=== PATIENT | female | born 1950 | race African-American/Black ===

== ENCOUNTER 2021-06-18 08:43 | Outpatient (CLI) | payer BC | END 2021-06-18 08:44 | disposition home or self-care (01) | LOC: BICRAD 08:43 | PROVIDERS: ATTEND Internal Medicine Critical Care Medicine | DX: R06.00 Dyspnea, unspecified (principal) | CPT/HCPCS: 71046 ==

== ENCOUNTER 2021-07-08 10:17 | Outpatient (CLI) | payer MEDICARE, BC ==
[2021-07-08 12:18] LABS: SARS-CoV-2 NAA Rapid Test Not Detected (NotDetected)
== END 2021-07-08 10:18 | disposition home or self-care (01) ==
LOC: LABBT 10:17
PROVIDERS: ATTEND Family Medicine
DX: Z01.812 Encounter for preprocedural laboratory examination (principal); Z20.822 Contact with and (suspected) exposure to COVID-19
CPT/HCPCS: U0002

== ENCOUNTER 2021-07-09 10:03 | Outpatient (CLI) | payer MEDICARE, BC | END 2021-07-09 10:04 | disposition home or self-care (01) | PROVIDERS: ATTEND Internal Medicine Critical Care Medicine | DX: T17.908A Unspecified foreign body in respiratory tract, part unspecified causing other injury, initial encounter (principal); R13.10 Dysphagia, unspecified | CPT/HCPCS: 74230 ==

== ENCOUNTER 2022-01-14 12:38 | Inpatient (IN) | payer MEDICARE, BC ==
[2022-01-14] MEDS ORDERED: Acetaminophen 325 MG TAB ONE ×2 (13:09→13:50)
[2022-01-14] MEDS ORDERED: cefTRIAXone\\ROCEPHIN 2 GM VIAL ONE ×2 (13:09→13:50)
[2022-01-14] MEDS ORDERED: Azithromycin 500 MG VIAL ONE ×2 (13:09→13:50)
[2022-01-14 13:30] LABS: #Lymphocytes 0.9 thou/uL (1.20-3.40); #Monocytes 0.6 thou/uL (0.11-0.59); #Neutrophils 6.1 thou/uL (1.40-6.50); %Eosinophils 0.5 % (0.0-10.0); %Lymphocytes 11.8 % (21.0-51.0); %Monocytes 7.3 % (0.0-10.0); %Neutrophils 80.4 % (42.0-75.0); Hemoglobin 10.3 g/dL (12.0-16.0); Mean Corpuscular Hemoglobin 27.6 pg (27.0-31.0); Mean Corpuscular Volume 89.2 fL (78.0-98.0); Mean Platelet Volume 9.7 fL (7.4-10.4); Platelet Count 143 thou/uL (130-400); RBC Distribution Width 17.5 % (11.5-14.5); Red Blood Cell (RBC) Count 3.72 mill/uL (4.20-5.40); White Blood Cell (WBC) Count 7.6 thou/uL (4.8-10.8)
[2022-01-14 13:55] LABS: ALT (SGPT) Less than 7 U/L (8-55); AST (SGOT) 10 U/L (5-34); Albumin 3.5 g/dL (3.4-4.8); Alkaline Phosphatase 64 U/L (40-110); Anion Gap 16 mmol/L (10-20); BUN (Urea Nitrogen) 43 mg/dL (9.8-20.1); Bilirubin, Total 0.4 mg/dL (0.2-1.2); Calc. Creatinine Clearance 0 mL/min (70-130); Calcium 9.2 mg/dL (7.8-10.44); Carbon Dioxide 21 mmol/L (23-31); Chloride 102 mmol/L (98-107); Globulin 4.3 g/dL (2.4-3.5); Glucose 148 mg/dL (80-115); Potassium 4.6 mmol/L (3.5-5.1); Protein, Total 7.8 g/dL (5.8-8.1); Sodium 134 mmol/L (136-145)
[2022-01-14] MEDS ORDERED: HumaLOG 300 UNITS/3 ML VIAL SC PRN ×2 (15:04)
[2022-01-14] MEDS ORDERED: Dextrose 50% Abboject 50 ML SYRINGE SLOW IVP PRN (15:04)
[2022-01-14] MEDS ORDERED: Dextrose 5% in Water 1,000 ML IV PRN (15:04)
[2022-01-14] MEDS ORDERED: Ondansetron PF 4 MG/2 ML Vial IVP PRN (15:05)
[2022-01-14] MEDS ORDERED: Senokot S 8.6-50 MG TAB PO PRN (15:05)
[2022-01-14] MEDS ORDERED: Ondansetron ODT 4 MG TAB PO PRN (15:05)
[2022-01-14] MEDS ORDERED: Oseltamivir 6 MG/ML ORAL SUSP PO SCH (15:15)
[2022-01-14] MEDS ORDERED: Albuterol Sulfate 2.5 mg/3 ml Neb NEB PRN (15:16)
[2022-01-14] MEDS ORDERED: Benzonatate 100 MG CAP PO PRN (16:15)
[2022-01-14] MEDS: Sodium Chloride 0.9% 1,000 ML IV SCH (18:58)
[2022-01-14] MEDS ORDERED: Alendronate Sodium 70 mg Tablet PO SCH (19:00)
[2022-01-14] MEDS ORDERED: Enoxaparin Sodium 30 MG/0.3 ML SYRINGE SC SCH (21:00)
[2022-01-14] MEDS: Atorvastatin Calcium 10 MG TAB PO SCH (21:36)
[2022-01-14] MEDS: Calcium Carbonate 600 MG + Vit D TAB PO SCH (21:37)
[2022-01-14] MEDS: Mycophenolate 250 MG CAP PO SCH (21:37)
[2022-01-14] MEDS: Carvedilol 25 MG TAB PO SCH (21:37)
[2022-01-14] MEDS: Magnesium Oxide 400 MG TAB PO SCH (21:38)
[2022-01-15 04:25] LABS: Hemoglobin A1c 6.8 % (4.0-6.0)
[2022-01-15 04:43] LABS: Anion Gap 12 mmol/L (10-20); BUN (Urea Nitrogen) 45 mg/dL (9.8-20.1); Calc. Creatinine Clearance 26 mL/min (70-130); Calcium 8.2 mg/dL (7.8-10.44); Carbon Dioxide 22 mmol/L (23-31); Chloride 105 mmol/L (98-107); Glucose 105 mg/dL (80-115); Potassium 4.4 mmol/L (3.5-5.1); Sodium 135 mmol/L (136-145)
[2022-01-15 05:03] LABS: Band 27 % (5-11); Hemoglobin 9.5 g/dL (12.0-16.0); Hypochromia SLIGHT = 6-15 cells (100X) (0-5/hpf); Lymphocytes 12 % (21-51); MDiff Complete? YES; Mean Corpuscular HGB CONC 30.8 g/dL (32.0-36.0); Mean Corpuscular Hemoglobin 27.5 pg (27.0-31.0); Mean Corpuscular Volume 89.4 fL (78.0-98.0); Mean Platelet Volume 10.4 fL (7.4-10.4); Monocytes 1 % (0-10); Neutrophil 60 % (42-75); Platelet Count 135 thou/uL (130-400); Platelet Morphology Comment Appears Adequate; RBC Distribution Width 17.1 % (11.5-14.5); Red Blood Cell (RBC) Count 3.46 mill/uL (4.20-5.40); White Blood Cell (WBC) Count 5.4 thou/uL (4.8-10.8)
[2022-01-15] MEDS: Sodium Chloride 0.9% 1,000 ML IV SCH ×3 (06:08→22:21)
[2022-01-15] MEDS: Carvedilol 25 MG TAB PO SCH ×2 (08:36→22:07)
[2022-01-15] MEDS: Enoxaparin Sodium 30 MG/0.3 ML SYRINGE SC SCH (08:36)
[2022-01-15] MEDS: predniSONE 5 MG TAB PO SCH (08:36)
[2022-01-15] MEDS: Mycophenolate 250 MG CAP PO SCH ×2 (08:36→22:07)
[2022-01-15] MEDS: Venlafaxine HCl XR 75 MG CAP PO SCH (08:37)
[2022-01-15] MEDS: Allopurinol 300 MG TAB PO SCH (08:37)
[2022-01-15] MEDS: Cholecalciferol 1,000 UNITS (25 MCG) TAB PO SCH (08:37)
[2022-01-15] MEDS: Calcium Carbonate 600 MG + Vit D TAB PO SCH ×2 (08:37→22:07)
[2022-01-15] MEDS ORDERED: cefTRIAXone\\ROCEPHIN 1 GM in Sodium Chloride 0.9% 100 ML IVPB SCH (14:00)
[2022-01-15 14:09] VITALS: BMI 26.3
[2022-01-15] MEDS ORDERED: Azithromycin 500 MG in Sodium Chloride 0.9% 250 ML 250 ML IVPB SCH (15:00)
[2022-01-15] MEDS: Oseltamivir 6 MG/ML ORAL SUSP PO SCH (16:23)
[2022-01-15] MEDS: Magnesium Oxide 400 MG TAB PO SCH (22:06)
[2022-01-15] MEDS: Atorvastatin Calcium 10 MG TAB PO SCH (22:07)
[2022-01-15] MEDS: Acetaminophen 325 MG TAB PO PRN (22:11)
[2022-01-16 04:28] LABS: #Lymphocytes 1.8 thou/uL (1.20-3.40); #Monocytes 0.2 thou/uL (0.11-0.59); #Neutrophils 2.4 thou/uL (1.40-6.50); %Basophils 0.4 % (0.0-1.0); %Eosinophils 0.2 % (0.0-10.0); %Lymphocytes 40.9 % (21.0-51.0); %Monocytes 4.2 % (0.0-10.0); %Neutrophils 54.4 % (42.0-75.0); Hemoglobin 9.2 g/dL (12.0-16.0); Mean Corpuscular HGB CONC 30.8 g/dL (32.0-36.0); Mean Corpuscular Hemoglobin 27.4 pg (27.0-31.0); Mean Corpuscular Volume 88.9 fL (78.0-98.0); Mean Platelet Volume 9.8 fL (7.4-10.4); Platelet Count 130 thou/uL (130-400); RBC Distribution Width 17.1 % (11.5-14.5); Red Blood Cell (RBC) Count 3.36 mill/uL (4.20-5.40); White Blood Cell (WBC) Count 4.5 thou/uL (4.8-10.8)
[2022-01-16 04:47] LABS: Anion Gap 12 mmol/L (10-20); BUN (Urea Nitrogen) 38 mg/dL (9.8-20.1); Calc. Creatinine Clearance 30 mL/min (70-130); Calcium 7.8 mg/dL (7.8-10.44); Carbon Dioxide 21 mmol/L (23-31); Chloride 109 mmol/L (98-107); Glucose 100 mg/dL (80-115); Potassium 3.8 mmol/L (3.5-5.1); Sodium 138 mmol/L (136-145)
[2022-01-16] MEDS: Mycophenolate 250 MG CAP PO SCH ×2 (09:00→21:10)
[2022-01-16] MEDS: Tacrolimus 0.5 MG CAP PO SCH ×2 (09:00→21:10)
[2022-01-16] MEDS: Calcium Carbonate 600 MG + Vit D TAB PO SCH ×2 (09:00→21:10)
[2022-01-16] MEDS: Cholecalciferol 1,000 UNITS (25 MCG) TAB PO SCH (09:00)
[2022-01-16] MEDS: Venlafaxine HCl XR 75 MG CAP PO SCH (09:01)
[2022-01-16] MEDS: Allopurinol 300 MG TAB PO SCH (09:01)
[2022-01-16] MEDS: Carvedilol 25 MG TAB PO SCH ×2 (09:01→21:10)
[2022-01-16] MEDS: Enoxaparin Sodium 30 MG/0.3 ML SYRINGE SC SCH (09:01)
[2022-01-16] MEDS: predniSONE 5 MG TAB PO SCH (09:01)
[2022-01-16] MEDS: Oseltamivir 6 MG/ML ORAL SUSP PO SCH (15:28)
[2022-01-16] MEDS: Sodium Chloride 0.9% 1,000 ML IV SCH ×2 (15:29)
[2022-01-16 17:39] LABS: Bilirubin Negative (Negative); Blood, Urine Negative (Negative); Clarity Clear (Clear); Glucose, Urine (Dipstick) Normal (Negative); Ketone, Urine Negative (Negative); Leukocyte Negative Leu/uL (Negative); Nitrite Negative (Negative); Protein, Urine (Dipstick) 20 mg/dL (Neg-Trace); RBC/HPF 0-3 HPF (0-3); Specific Gravity, Urine 1.014 (1.002-1.036); Urobilinogen Normal mg/dL (Less than 2); WBC/HPF 0-3 HPF (0-3); pH, Urine 5.5 (5.0-9.0)
[2022-01-16 17:40] LABS: Bacteria/HPF 1+ HPF (None Seen); Urine Culture Reflex No No
[2022-01-16 17:49] LABS: Legionella Urinary Ag Negative (Negative); Strep pneumo Urine Ag NEGATIVE (NEGATIVE)
[2022-01-16] MEDS: Atorvastatin Calcium 10 MG TAB PO SCH (21:10)
[2022-01-16] MEDS: Magnesium Oxide 400 MG TAB PO SCH (21:10)
[2022-01-16] MEDS ORDERED: Loperamide HCl 2 MG CAP PO SCH (22:00)
[2022-01-17] MEDS: Sodium Chloride 0.9% 1,000 ML IV SCH (05:17)
[2022-01-17] MEDS: Allopurinol 300 MG TAB PO SCH (09:15)
[2022-01-17] MEDS: Cholecalciferol 1,000 UNITS (25 MCG) TAB PO SCH (09:15)
[2022-01-17] MEDS: Carvedilol 25 MG TAB PO SCH (09:15)
[2022-01-17] MEDS: Mycophenolate 250 MG CAP PO SCH (09:15)
[2022-01-17] MEDS: Venlafaxine HCl XR 75 MG CAP PO SCH (09:15)
[2022-01-17] MEDS: predniSONE 5 MG TAB PO SCH (09:15)
[2022-01-17] MEDS: Enoxaparin Sodium 30 MG/0.3 ML SYRINGE SC SCH (09:16)
[2022-01-17] MEDS: Calcium Carbonate 600 MG + Vit D TAB PO SCH (09:16)
[2022-01-17] MEDS: Acetaminophen 325 MG TAB PO PRN (09:22)
[2022-01-17 11:56] VITALS: TEMP 98.8
[2022-01-17 12:15] VITALS: BP 137/73
[2022-01-17] MEDS: Oseltamivir 6 MG/ML ORAL SUSP PO SCH (12:46)
[2022-01-17] MEDS ORDERED: AMOXicillin 250 MG CAP PO SCH (21:00)
[2022-01-17] MEDS ORDERED: Amoxicillin/Potassium Clav 500 MG TAB PO SCH (21:00)
== END 2022-01-17 13:45 | disposition home or self-care (01) | DRG 193 ==
LOC: ERS 12:38 → EEVIPCON 14:55 → ERHOLD 14:55 → 2NO 17:23
PROVIDERS: ADMIT Student in an Organized Health Care Education/Training Program; ATTEND Student in an Organized Health Care Education/Training Program
DX: J11.00 Influenza due to unidentified influenza virus with unspecified type of pneumonia (principal); J96.01 Acute respiratory failure with hypoxia; E87.1 Hypo-osmolality and hyponatremia; N17.9 Acute kidney failure, unspecified; Z94.1 Heart transplant status; D84.821 Immunodeficiency due to drugs; Z20.822 Contact with and (suspected) exposure to COVID-19; I10 Essential (primary) hypertension; E78.5 Hyperlipidemia, unspecified; M81.0 Age-related osteoporosis without current pathological fracture; M10.9 Gout, unspecified; E03.9 Hypothyroidism, unspecified; F32.A Depression, unspecified; Z60.2 Problems related to living alone; D64.9 Anemia, unspecified; E11.65 Type 2 diabetes mellitus with hyperglycemia; J11.2 Influenza due to unidentified influenza virus with gastrointestinal manifestations; Z98.890 Other specified postprocedural states; Z79.899 Other long term (current) drug therapy; Z88.1 Allergy status to other antibiotic agents; Z88.8 Allergy status to other drugs, medicaments and biological substances
CPT/HCPCS: 36415; 36416; 71045; 80048; 80053; 81001; 83036; 83605; 85025; 87040; 87324; 87449; 87899; 96365; 96367; J0456; J0696; J1650; J7050; J7507; J7512; J7517

== ENCOUNTER 2022-02-17 10:02 | Outpatient (CLI) | payer MEDICARE, BC | END 2022-02-17 10:03 | disposition home or self-care (01) | LOC: RAD 10:02 | PROVIDERS: ATTEND Internal Medicine Critical Care Medicine | DX: R06.00 Dyspnea, unspecified (principal); J18.9 Pneumonia, unspecified organism; J90 Pleural effusion, not elsewhere classified | CPT/HCPCS: 71046 ==

== ENCOUNTER 2022-07-10 11:25 | Emergency (ER) | payer MEDICARE, BC ==
[2022-07-10 12:10] LABS: #Basophils 0.1 thou/uL (0.0-0.2); #Monocytes 0.5 thou/uL (0.11-0.59); %Basophils 0.6 % (0.0-1.0); %Eosinophils 0.4 % (0.0-10.0); %Lymphocytes 22.9 % (21.0-51.0); %Monocytes 6.1 % (0.0-10.0); Hemoglobin 11.4 g/dL (12.0-16.0); Mean Corpuscular HGB CONC 30.9 g/dL (32.0-36.0); Mean Corpuscular Hemoglobin 26.6 pg (27.0-31.0); Mean Corpuscular Volume 85.9 fL (78.0-98.0); Mean Platelet Volume 11.6 fL (7.4-10.4); Platelet Count 129 thou/uL (130-400); RBC Distribution Width 17.9 % (11.5-14.5); White Blood Cell (WBC) Count 8.5 thou/uL (4.8-10.8)
[2022-07-10 12:30] LABS: ALT (SGPT) 8 U/L (8-55); AST (SGOT) 19 U/L (5-34); Albumin 3.6 g/dL (3.4-4.8); Alkaline Phosphatase 69 U/L (40-110); Anion Gap 18 mmol/L (10-20); BUN (Urea Nitrogen) 51 mg/dL (9.8-20.1); Bilirubin, Total 0.5 mg/dL (0.2-1.2); Calc. Creatinine Clearance 0 mL/min (70-130); Calcium 9.3 mg/dL (7.8-10.44); Carbon Dioxide 20 mmol/L (23-31); Chloride 101 mmol/L (98-107); Estimated GFR 15; Globulin 4.5 g/dL (2.4-3.5); Glucose 143 mg/dL (83-110); Potassium 4.5 mmol/L (3.5-5.1); Protein, Total 8.1 g/dL (5.8-8.1); Sodium 134 mmol/L (136-145)
[2022-07-10] MEDS ORDERED: Bisacodyl 10 MG SUPP ONE (12:51)
[2022-07-10 13:33] LABS: SARS-CoV-2 NAA Rapid Test DETECTED (NotDetected)
[2022-07-10] MEDS ORDERED: Fentanyl 100 MCG/2 ML VIAL ONE ×2 (13:39→17:41)
[2022-07-10 15:25] LABS: Bacteria/HPF None Seen HPF (None Seen); Bilirubin Negative (Negative); Blood, Urine Negative (Negative); Clarity Clear (Clear); Glucose, Urine (Dipstick) Normal (Negative); Ketone, Urine Negative (Negative); Leukocyte Negative Leu/uL (Negative); Nitrite Negative (Negative); Protein, Urine (Dipstick) 70 mg/dL (Neg-Trace); RBC/HPF 0-3 HPF (0-3); Specific Gravity, Urine 1.019 (1.002-1.036); Squamous Epithelial None Seen HPF (0-3); Urobilinogen Normal mg/dL (Less than 2); WBC/HPF 0-3 HPF (0-3); pH, Urine 5.5 (5.0-9.0)
== END 2022-07-10 19:32 | disposition short-term general hospital (02) ==
LOC: ERS 11:25
DX: U07.1 COVID-19 (principal); R41.82 Altered mental status, unspecified; N17.9 Acute kidney failure, unspecified; Z79.899 Other long term (current) drug therapy; Z79.52 Long term (current) use of systemic steroids; E78.5 Hyperlipidemia, unspecified; I10 Essential (primary) hypertension
CPT/HCPCS: 51701; 70450; 71045; 74176; 80053; 84484; 85025; 87086; 93005; 96361; 96374; 96376; 99285; U0002; 81003; 81015; J3010

== ENCOUNTER 2023-02-09 11:09 | Outpatient (CLI) | payer MEDICARE, BC | END 2023-02-09 11:10 | disposition home or self-care (01) | LOC: RAD 11:09 | PROVIDERS: ATTEND Internal Medicine Critical Care Medicine | DX: R06.00 Dyspnea, unspecified (principal) | CPT/HCPCS: 71046 ==

== ENCOUNTER 2023-09-04 19:03 | Inpatient (IN) | payer MEDICARE, BC ==
[2023-09-04 20:23] LABS: ALT (SGPT) 9 U/L (8-55); AST (SGOT) 10 U/L (5-34); Albumin 3.9 g/dL (3.4-4.8); Alkaline Phosphatase 82 U/L (40-110); Anion Gap 15 mmol/L (10-20); BUN (Urea Nitrogen) 70 mg/dL (9.8-20.1); Bilirubin, Total 0.3 mg/dL (0.2-1.2); Calc. Creatinine Clearance 0 mL/min (70-130); Calcium 9.6 mg/dL (7.8-10.44); Carbon Dioxide 22 mmol/L (23-31); Chloride 105 mmol/L (98-107); Estimated GFR 18; Globulin 4.3 g/dL (2.4-3.5); Glucose 138 mg/dL (83-110); Potassium 4.7 mmol/L (3.5-5.1); Protein, Total 8.2 g/dL (5.8-8.1); Sodium 137 mmol/L (136-145)
[2023-09-04 20:27] LABS: Troponin I Less than 0.010 ng/mL (< 0.028)
[2023-09-04 20:37] LABS: #Monocytes 0.3 thou/uL (0.11-0.59); %Basophils 0.3 % (0.0-1.0); %Eosinophils 0.3 % (0.0-10.0); %Lymphocytes 27.6 % (21.0-51.0); %Monocytes 4.6 % (0.0-10.0); %Neutrophils 63.6 % (42.0-75.0); Hematocrit 33.1 % (36.0-47.0); Mean Corpuscular HGB CONC 30.2 g/dL (32.0-36.0); Mean Corpuscular Volume 86.2 fl (78.0-98.0); Mean Platelet Volume 9.2 fL (7.4-10.4); Platelet Count 181 10x3/uL (130-400); RBC Distribution Width 17.3 % (11.5-14.5); Red Blood Cell (RBC) Count 3.84 mill/uL (4.20-5.40); White Blood Cell (WBC) Count 6.4 10x3/uL (4.8-10.8)
[2023-09-04] MEDS ORDERED: Tacrolimus 0.5 MG CAP PO SCH (23:26)
[2023-09-04] MEDS ORDERED: Calcium Carbonate 500 MG ChewTAB PO PRN (23:29)
[2023-09-04] MEDS ORDERED: Mycophenolate 250 MG CAP PO SCH (23:45)
[2023-09-05] MEDS ORDERED: Acetaminophen 500 MG TAB ONE (00:19)
[2023-09-05] MEDS ORDERED: Sodium Chloride 0.9% 1,000 ML IV SCH (00:30)
[2023-09-05 01:10] LABS: Troponin I Less than 0.010 ng/mL (< 0.028)
[2023-09-05 02:58] LABS: #Eosinphils 0.1 thou/uL (0.0-0.7); #Monocytes 0.5 thou/uL (0.11-0.59); #Neutrophils 5.1 thou/uL (1.40-6.50); %Basophils 0.3 % (0.0-1.0); %Eosinophils 0.6 % (0.0-10.0); %Lymphocytes 25.1 % (21.0-51.0); %Monocytes 6.2 % (0.0-10.0); %Neutrophils 66.1 % (42.0-75.0); Hematocrit 32.6 % (36.0-47.0); Hemoglobin 10.1 g/dL (12.0-16.0); Mean Corpuscular Hemoglobin 26.6 pg (27.0-31.0); Mean Corpuscular Volume 85.8 fl (78.0-98.0); Mean Platelet Volume 9.3 fL (7.4-10.4); Platelet Count 170 10x3/uL (130-400); RBC Distribution Width 17.2 % (11.5-14.5); White Blood Cell (WBC) Count 7.7 10x3/uL (4.8-10.8)
[2023-09-05 03:29] LABS: Troponin I Less than 0.010 ng/mL (< 0.028)
[2023-09-05 03:37] LABS: Calcium 9.3 mg/dL (7.8-10.44); Chloride 107 mmol/L (98-107); Potassium 4.5 mmol/L (3.5-5.1); Sodium 136 mmol/L (136-145)
[2023-09-05 03:38] LABS: Glucose 93 mg/dL (83-110)
[2023-09-05 03:39] LABS: Anion Gap 13 mmol/L (10-20); Carbon Dioxide 21 mmol/L (23-31)
[2023-09-05 03:41] LABS: Calc. Creatinine Clearance 24 mL/min (70-130); Estimated GFR 23
[2023-09-05 03:42] LABS: BUN (Urea Nitrogen) 61 mg/dL (9.8-20.1)
[2023-09-05] MEDS: Levothyroxine Sodium 88 MCG TAB PO SCH (07:21)
[2023-09-05] MEDS ORDERED: FLU VACC QS2023(65UP)/MF59C/PF 60 MCG/0.5 ML SYRINGE IM ONE (08:45)
[2023-09-05] MEDS: Venlafaxine HCl XR 75 MG CAP PO SCH (10:10)
[2023-09-05] MEDS: Carvedilol 25 MG TAB PO SCH ×2 (10:10→21:04)
[2023-09-05] MEDS: dilTIAZem CD 180 MG CAP PO SCH (10:10)
[2023-09-05] MEDS: Famotidine 20 MG TAB PO SCH (10:10)
[2023-09-05] MEDS: Cholecalciferol 1,000 UNITS (25 MCG) TAB PO SCH (10:11)
[2023-09-05] MEDS: predniSONE 5 MG TAB PO SCH (10:11)
[2023-09-05] MEDS: Allopurinol 300 MG TAB PO SCH (10:11)
[2023-09-05] MEDS: Mycophenolate 250 MG CAP PO SCH ×2 (10:11→21:08)
[2023-09-05] MEDS: Sodium Chloride 0.9% 1,000 ML IV SCH (18:36)
[2023-09-05] MEDS: Atorvastatin Calcium 10 MG TAB PO SCH (21:04)
[2023-09-05] MEDS: Magnesium Oxide 400 MG TAB PO SCH (21:07)
[2023-09-06 04:26] LABS: #Eosinphils 0.1 thou/uL (0.0-0.7); #Monocytes 0.4 thou/uL (0.11-0.59); #Neutrophils 3.5 thou/uL (1.40-6.50); %Basophils 0.5 % (0.0-1.0); %Eosinophils 1.1 % (0.0-10.0); %Lymphocytes 28.8 % (21.0-51.0); %Monocytes 6.4 % (0.0-10.0); %Neutrophils 61.6 % (42.0-75.0); Hemoglobin 9.9 g/dL (12.0-16.0); Mean Corpuscular Hemoglobin 25.8 pg (27.0-31.0); Mean Corpuscular Volume 85.9 fl (78.0-98.0); Platelet Count 177 10x3/uL (130-400); RBC Distribution Width 17.2 % (11.5-14.5); Red Blood Cell (RBC) Count 3.84 mill/uL (4.20-5.40); White Blood Cell (WBC) Count 5.6 10x3/uL (4.8-10.8)
[2023-09-06 04:55] LABS: Anion Gap 10 mmol/L (10-20); BUN (Urea Nitrogen) 52 mg/dL (9.8-20.1); Calc. Creatinine Clearance 27 mL/min (70-130); Calcium 8.8 mg/dL (7.8-10.44); Carbon Dioxide 22 mmol/L (23-31); Chloride 109 mmol/L (98-107); Estimated GFR 28; Glucose 113 mg/dL (83-110); Potassium 4.3 mmol/L (3.5-5.1); Sodium 137 mmol/L (136-145)
[2023-09-06 09:32] VITALS: BMI 24.3
[2023-09-06] MEDS: Mycophenolate 250 MG CAP PO SCH ×2 (10:54→21:49)
[2023-09-06] MEDS: Venlafaxine HCl XR 75 MG CAP PO SCH (10:54)
[2023-09-06] MEDS: dilTIAZem CD 180 MG CAP PO SCH (10:54)
[2023-09-06] MEDS: Tacrolimus 0.5 MG CAP PO SCH ×2 (10:54→21:58)
[2023-09-06] MEDS: Carvedilol 25 MG TAB PO SCH ×2 (10:54→21:49)
[2023-09-06] MEDS: predniSONE 5 MG TAB PO SCH (10:55)
[2023-09-06] MEDS: Cholecalciferol 1,000 UNITS (25 MCG) TAB PO SCH (10:55)
[2023-09-06] MEDS: Famotidine 20 MG TAB PO SCH (10:55)
[2023-09-06] MEDS: Allopurinol 300 MG TAB PO SCH (10:55)
[2023-09-06] MEDS: Sodium Chloride 0.9% 1,000 ML IV SCH (11:37)
[2023-09-06 14:19] LABS: Creatinine, Urine 84.41 mg/dL (47-110)
[2023-09-06] MEDS ORDERED: Tacrolimus 0.5 MG CAP PO SCH (21:00)
[2023-09-06] MEDS: Magnesium Oxide 400 MG TAB PO SCH (21:48)
[2023-09-06] MEDS: Atorvastatin Calcium 10 MG TAB PO SCH (21:49)
[2023-09-07 05:03] LABS: Anion Gap 12 mmol/L (10-20); BUN (Urea Nitrogen) 39 mg/dL (9.8-20.1); Calc. Creatinine Clearance 30 mL/min (70-130); Calcium 8.7 mg/dL (7.8-10.44); Carbon Dioxide 17 mmol/L (23-31); Chloride 113 mmol/L (98-107); Estimated GFR 33; Glucose 135 mg/dL (83-110); Potassium 4.2 mmol/L (3.5-5.1); Sodium 138 mmol/L (136-145)
[2023-09-07] MEDS: Levothyroxine Sodium 88 MCG TAB PO SCH (05:43)
[2023-09-07] MEDS: Tacrolimus 0.5 MG CAP PO SCH (08:53)
[2023-09-07] MEDS: Carvedilol 25 MG TAB PO SCH ×2 (08:53→19:56)
[2023-09-07] MEDS: Ondansetron ODT 4 MG TAB PO PRN (08:53)
[2023-09-07] MEDS: dilTIAZem CD 180 MG CAP PO SCH (08:53)
[2023-09-07] MEDS: predniSONE 5 MG TAB PO SCH (08:53)
[2023-09-07] MEDS: Famotidine 20 MG TAB PO SCH (08:54)
[2023-09-07] MEDS: Allopurinol 300 MG TAB PO SCH (08:54)
[2023-09-07] MEDS: Venlafaxine HCl XR 75 MG CAP PO SCH (08:54)
[2023-09-07] MEDS: Cholecalciferol 1,000 UNITS (25 MCG) TAB PO SCH (08:54)
[2023-09-07] MEDS: Mycophenolate 250 MG CAP PO SCH ×2 (08:54→19:56)
[2023-09-07] MEDS: Sodium Chloride 0.9% 1,000 ML IV SCH (09:02)
[2023-09-07] MEDS: Atorvastatin Calcium 10 MG TAB PO SCH (19:56)
[2023-09-07] MEDS: Magnesium Oxide 400 MG TAB PO SCH (19:56)
[2023-09-08 05:20] LABS: Anion Gap 15 mmol/L (10-20); BUN (Urea Nitrogen) 42 mg/dL (9.8-20.1); Calc. Creatinine Clearance 21 mL/min (70-130); Calcium 8.2 mg/dL (7.8-10.44); Carbon Dioxide 18 mmol/L (23-31); Chloride 106 mmol/L (98-107); Estimated GFR 22; Glucose 135 mg/dL (83-110); Potassium 4.6 mmol/L (3.5-5.1); Sodium 134 mmol/L (136-145)
[2023-09-08] MEDS: Sodium Chloride 0.9% 1,000 ML IV SCH (05:34)
[2023-09-08] MEDS: Mycophenolate 250 MG CAP PO SCH ×2 (08:58→20:33)
[2023-09-08] MEDS: predniSONE 5 MG TAB PO SCH (08:59)
[2023-09-08] MEDS: Cholecalciferol 1,000 UNITS (25 MCG) TAB PO SCH (08:59)
[2023-09-08] MEDS: Venlafaxine HCl XR 75 MG CAP PO SCH (08:59)
[2023-09-08] MEDS: Carvedilol 25 MG TAB PO SCH ×2 (08:59→21:07)
[2023-09-08] MEDS: Allopurinol 300 MG TAB PO SCH (08:59)
[2023-09-08] MEDS: Tacrolimus 0.5 MG CAP PO SCH (08:59)
[2023-09-08] MEDS: Famotidine 20 MG TAB PO SCH (08:59)
[2023-09-08] MEDS: dilTIAZem CD 180 MG CAP PO SCH (08:59)
[2023-09-08 17:38] LABS: Tacrolimus 3.1 ng/mL (2.0-20.0)
[2023-09-08] MEDS: Ondansetron ODT 4 MG TAB PO PRN (18:07)
[2023-09-08] MEDS: Atorvastatin Calcium 10 MG TAB PO SCH (20:32)
[2023-09-08] MEDS: Magnesium Oxide 400 MG TAB PO SCH (20:33)
[2023-09-09] MEDS: Sodium Chloride 0.9% 1,000 ML IV SCH ×2 (01:40→20:54)
[2023-09-09 02:56] LABS: Bacteria/HPF None Seen HPF (None Seen); Bilirubin Negative (Negative); Blood, Urine Negative (Negative); CAUTI Indications for Culture Dysuria,urgency,freq; Clarity Clear (Clear); Glucose, Urine (Dipstick) 30 mg/dL (Negative); Ketone, Urine Negative (Negative); Leukocyte Negative Leu/uL (Negative); Nitrite Negative (Negative); Protein, Urine (Dipstick) 20 mg/dL (Neg-Trace); RBC/HPF 0-3 HPF (0-3); Squamous Epithelial None Seen HPF (0-3); Urobilinogen Normal mg/dL (Less than 2); WBC/HPF 0-3 HPF (0-3)
[2023-09-09 02:57] LABS: Urine Culture Reflex No No
[2023-09-09 04:33] LABS: Hemoglobin 8.5 g/dL (12.0-16.0); Manual Diff?? YES; Mean Corpuscular HGB CONC 30.4 g/dL (32.0-36.0); Mean Corpuscular Hemoglobin 25.8 pg (27.0-31.0); Mean Corpuscular Volume 85.1 fl (78.0-98.0); Mean Platelet Volume 10.5 fL (7.4-10.4); Platelet Count 150 10x3/uL (130-400); RBC Distribution Width 17.2 % (11.5-14.5); Red Blood Cell (RBC) Count 3.29 mill/uL (4.20-5.40)
[2023-09-09 04:36] LABS: Delete Auto Diff?? YES
[2023-09-09 05:14] LABS: Band 49 % (5-11); CellaVision Operator ID LAB.CLH1; Hypochromia SLIGHT = 6-15 cells HPF (0-5); Large Platelets 6.9 % (0-5); Lymphocytes 4 % (21-51); Monocytes 1 % (0-10); Neutrophil 46 % (42-75); Platelet Adequacy Comment Platelets Normal; Polychromasia SLIGHT = 2-3 cells HPF (0-2); Total Cell Count 102
[2023-09-09] MEDS: Levothyroxine Sodium 88 MCG TAB PO SCH (05:30)
[2023-09-09] MEDS: Cholecalciferol 1,000 UNITS (25 MCG) TAB PO SCH (09:18)
[2023-09-09] MEDS: Carvedilol 25 MG TAB PO SCH ×2 (09:18→20:53)
[2023-09-09] MEDS: predniSONE 5 MG TAB PO SCH (09:18)
[2023-09-09] MEDS: dilTIAZem CD 180 MG CAP PO SCH (09:18)
[2023-09-09] MEDS: Famotidine 20 MG TAB PO SCH (09:18)
[2023-09-09] MEDS: Tacrolimus 0.5 MG CAP PO SCH (09:18)
[2023-09-09] MEDS: Venlafaxine HCl XR 75 MG CAP PO SCH (09:19)
[2023-09-09] MEDS: Mycophenolate 250 MG CAP PO SCH ×2 (09:19→20:53)
[2023-09-09] MEDS: Allopurinol 300 MG TAB PO SCH (09:19)
[2023-09-09 11:36] LABS: Anion Gap 12 mmol/L (10-20); BUN (Urea Nitrogen) 59 mg/dL (9.8-20.1); Calc. Creatinine Clearance 15 mL/min (70-130); Calcium 8.2 mg/dL (7.8-10.44); Carbon Dioxide 19 mmol/L (23-31); Chloride 106 mmol/L (98-107); Estimated GFR 15; Glucose 156 mg/dL (83-110); Potassium 4.5 mmol/L (3.5-5.1); Sodium 132 mmol/L (136-145)
[2023-09-09] MEDS ORDERED: Sodium Bicarbonate Tab 325 MG TAB PO SCH (19:00)
[2023-09-09] MEDS: Atorvastatin Calcium 10 MG TAB PO SCH (20:53)
[2023-09-09] MEDS: Magnesium Oxide 400 MG TAB PO SCH (20:53)
[2023-09-10] MEDS: Acetaminophen 325 MG TAB PO PRN ×2 (05:04→09:04)
[2023-09-10 05:32] LABS: Anion Gap 14 mmol/L (10-20); BUN (Urea Nitrogen) 58 mg/dL (9.8-20.1); Calc. Creatinine Clearance 18 mL/min (70-130); Calcium 8.3 mg/dL (7.8-10.44); Carbon Dioxide 17 mmol/L (23-31); Chloride 108 mmol/L (98-107); Estimated GFR 19; Glucose 107 mg/dL (83-110); Potassium 4.7 mmol/L (3.5-5.1); Sodium 134 mmol/L (136-145)
[2023-09-10] MEDS: Sodium Bicarbonate Tab 325 MG TAB PO SCH ×2 (09:05→22:21)
[2023-09-10] MEDS: Mycophenolate 250 MG CAP PO SCH ×2 (09:05→22:21)
[2023-09-10] MEDS: Famotidine 20 MG TAB PO SCH (09:06)
[2023-09-10] MEDS: Venlafaxine HCl XR 75 MG CAP PO SCH (09:06)
[2023-09-10] MEDS: Allopurinol 300 MG TAB PO SCH (09:06)
[2023-09-10] MEDS: Cholecalciferol 1,000 UNITS (25 MCG) TAB PO SCH (09:06)
[2023-09-10] MEDS: Carvedilol 25 MG TAB PO SCH ×2 (09:06→22:21)
[2023-09-10] MEDS: Tacrolimus 0.5 MG CAP PO SCH ×2 (09:07→22:24)
[2023-09-10] MEDS: dilTIAZem CD 180 MG CAP PO SCH (09:07)
[2023-09-10] MEDS: predniSONE 5 MG TAB PO SCH (09:07)
[2023-09-10] MEDS: Sodium Chloride 0.9% 1,000 ML IV SCH (09:08)
[2023-09-10] MEDS ORDERED: Tamsulosin HCl 0.4 MG CAP PO SCH (16:30)
[2023-09-10] MEDS: Atorvastatin Calcium 10 MG TAB PO SCH (22:21)
[2023-09-10] MEDS: Magnesium Oxide 400 MG TAB PO SCH (22:21)
[2023-09-11] MEDS: Levothyroxine Sodium 88 MCG TAB PO SCH (06:07)
[2023-09-11] MEDS: Cholecalciferol 1,000 UNITS (25 MCG) TAB PO SCH (09:12)
[2023-09-11] MEDS: Carvedilol 25 MG TAB PO SCH ×2 (09:12→20:16)
[2023-09-11] MEDS: dilTIAZem CD 180 MG CAP PO SCH (09:12)
[2023-09-11] MEDS: Allopurinol 300 MG TAB PO SCH (09:12)
[2023-09-11] MEDS: Mycophenolate 250 MG CAP PO SCH ×2 (09:13→20:16)
[2023-09-11] MEDS: predniSONE 5 MG TAB PO SCH (09:13)
[2023-09-11] MEDS: Famotidine 20 MG TAB PO SCH (09:13)
[2023-09-11] MEDS: Tamsulosin HCl 0.4 MG CAP PO SCH (09:14)
[2023-09-11] MEDS: Sodium Bicarbonate Tab 325 MG TAB PO SCH ×2 (09:14→20:16)
[2023-09-11] MEDS: Venlafaxine HCl XR 75 MG CAP PO SCH (09:14)
[2023-09-11] MEDS: Tacrolimus 0.5 MG CAP PO SCH (09:14)
[2023-09-11] MEDS: Acetaminophen 325 MG TAB PO PRN (20:16)
[2023-09-11] MEDS: Magnesium Oxide 400 MG TAB PO SCH (20:16)
[2023-09-11] MEDS: Atorvastatin Calcium 10 MG TAB PO SCH (20:16)
[2023-09-12] MEDS: Acetaminophen 325 MG TAB PO PRN ×3 (02:00→21:43)
[2023-09-12 02:52] LABS: Bilirubin Negative (Negative); Blood, Urine Negative (Negative); CAUTI Indications for Culture Dysuria,urgency,freq; Clarity Clear (Clear); Glucose, Urine (Dipstick) Normal (Negative); Ketone, Urine Negative (Negative); Leukocyte 250 Leu/uL (Negative); Nitrite Negative (Negative); Protein, Urine (Dipstick) 20 mg/dL (Neg-Trace); RBC/HPF 0-3 HPF (0-3); Specific Gravity, Urine 1.012 (1.002-1.036); Squamous Epithelial None Seen HPF (0-3); Urobilinogen Normal mg/dL (Less than 2); WBC/HPF 21-50 HPF (0-3)
[2023-09-12 02:53] LABS: Bacteria/HPF 1+ HPF (None Seen); Urine Culture Reflex Yes Yes
[2023-09-12] MEDS: Levothyroxine Sodium 88 MCG TAB PO SCH (05:42)
[2023-09-12 06:13] LABS: Anion Gap 10 mmol/L (10-20); BUN (Urea Nitrogen) 51 mg/dL (9.8-20.1); Calc. Creatinine Clearance 27 mL/min (70-130); Calcium 9.5 mg/dL (7.8-10.44); Carbon Dioxide 22 mmol/L (23-31); Chloride 110 mmol/L (98-107); Estimated GFR 30; Glucose 112 mg/dL (83-110); Potassium 4.3 mmol/L (3.5-5.1); Sodium 138 mmol/L (136-145)
[2023-09-12] MEDS: Venlafaxine HCl XR 75 MG CAP PO SCH (10:56)
[2023-09-12] MEDS: Famotidine 20 MG TAB PO SCH (10:56)
[2023-09-12] MEDS: dilTIAZem CD 180 MG CAP PO SCH (10:56)
[2023-09-12] MEDS: Carvedilol 25 MG TAB PO SCH ×2 (10:56→21:12)
[2023-09-12] MEDS: Tacrolimus 0.5 MG CAP PO SCH (10:56)
[2023-09-12] MEDS: Sodium Bicarbonate Tab 325 MG TAB PO SCH ×2 (10:56→21:12)
[2023-09-12] MEDS: Tamsulosin HCl 0.4 MG CAP PO SCH (10:56)
[2023-09-12] MEDS: Allopurinol 300 MG TAB PO SCH (10:56)
[2023-09-12] MEDS: Cholecalciferol 1,000 UNITS (25 MCG) TAB PO SCH (10:57)
[2023-09-12] MEDS: predniSONE 5 MG TAB PO SCH (10:57)
[2023-09-12] MEDS: Mycophenolate 250 MG CAP PO SCH ×2 (10:57→21:12)
[2023-09-12] MEDS: Cefdinir 300 MG CAP PO SCH (12:44)
[2023-09-12] MEDS: Atorvastatin Calcium 10 MG TAB PO SCH (21:12)
[2023-09-12] MEDS: Magnesium Oxide 400 MG TAB PO SCH (21:14)
[2023-09-13] MEDS: Acetaminophen 325 MG TAB PO PRN ×2 (04:05→20:54)
[2023-09-13 05:03] LABS: Anion Gap 14 mmol/L (10-20); BUN (Urea Nitrogen) 48 mg/dL (9.8-20.1); Calc. Creatinine Clearance 28 mL/min (70-130); Calcium 9.7 mg/dL (7.8-10.44); Carbon Dioxide 20 mmol/L (23-31); Chloride 108 mmol/L (98-107); Estimated GFR 30; Glucose 96 mg/dL (83-110); Potassium 5.2 mmol/L (3.5-5.1); Sodium 137 mmol/L (136-145)
[2023-09-13] MEDS: Tamsulosin HCl 0.4 MG CAP PO SCH (11:19)
[2023-09-13] MEDS: Venlafaxine HCl XR 75 MG CAP PO SCH (11:19)
[2023-09-13] MEDS: predniSONE 5 MG TAB PO SCH (11:19)
[2023-09-13] MEDS: dilTIAZem CD 180 MG CAP PO SCH (11:19)
[2023-09-13] MEDS: Tacrolimus 0.5 MG CAP PO SCH ×2 (11:19→21:05)
[2023-09-13] MEDS: Sodium Bicarbonate Tab 325 MG TAB PO SCH ×2 (11:20→20:54)
[2023-09-13] MEDS: Cefdinir 300 MG CAP PO SCH (11:20)
[2023-09-13] MEDS: Carvedilol 25 MG TAB PO SCH ×2 (11:20→20:54)
[2023-09-13] MEDS: Cholecalciferol 1,000 UNITS (25 MCG) TAB PO SCH (11:20)
[2023-09-13] MEDS: Allopurinol 300 MG TAB PO SCH (11:20)
[2023-09-13] MEDS: Mycophenolate 250 MG CAP PO SCH ×2 (11:20→20:54)
[2023-09-13] MEDS: Famotidine 20 MG TAB PO SCH (11:20)
[2023-09-13] MEDS: Magnesium Oxide 400 MG TAB PO SCH (20:54)
[2023-09-13] MEDS: Amoxicillin/Potassium Clav 500 MG TAB PO SCH (20:54)
[2023-09-13] MEDS: Atorvastatin Calcium 10 MG TAB PO SCH (20:54)
[2023-09-14] MEDS: Acetaminophen 325 MG TAB PO PRN (03:46)
[2023-09-14] MEDS: Levothyroxine Sodium 88 MCG TAB PO SCH (03:47)
[2023-09-14] MEDS ORDERED: Furosemide 40 MG/4 ML VIAL SLOW IVP SCH (08:30)
[2023-09-14] MEDS: Famotidine 20 MG TAB PO SCH (08:35)
[2023-09-14] MEDS: Carvedilol 25 MG TAB PO SCH (08:36)
[2023-09-14] MEDS: Tamsulosin HCl 0.4 MG CAP PO SCH (08:36)
[2023-09-14] MEDS: Venlafaxine HCl XR 75 MG CAP PO SCH (08:36)
[2023-09-14] MEDS: Tacrolimus 0.5 MG CAP PO SCH (08:37)
[2023-09-14] MEDS: predniSONE 5 MG TAB PO SCH (08:38)
[2023-09-14] MEDS: Allopurinol 300 MG TAB PO SCH (08:38)
[2023-09-14] MEDS: Sodium Bicarbonate Tab 325 MG TAB PO SCH (08:38)
[2023-09-14] MEDS: Amoxicillin/Potassium Clav 500 MG TAB PO SCH (08:38)
[2023-09-14] MEDS: Mycophenolate 250 MG CAP PO SCH (08:38)
[2023-09-14] MEDS: Cholecalciferol 1,000 UNITS (25 MCG) TAB PO SCH (08:38)
[2023-09-14] MEDS: dilTIAZem CD 180 MG CAP PO SCH (08:38)
[2023-09-14] MEDS ORDERED: Amoxicillin/Potassium Clav 500 MG TAB PO SCH (09:00)
[2023-09-14 14:36] VITALS: BP 125/73; TEMP 97.7
== END 2023-09-14 15:36 | DRG 682 ==
LOC: ERS 19:03 → ERHOLD 23:33 → 2NO 09-05 05:46 → T4-A 09-13 15:36
PROVIDERS: ADMIT Student in an Organized Health Care Education/Training Program; ATTEND Internal Medicine
DX: N17.9 Acute kidney failure, unspecified (principal); J96.01 Acute respiratory failure with hypoxia; S32.591A Other specified fracture of right pubis, initial encounter for closed fracture; N39.0 Urinary tract infection, site not specified; Z94.1 Heart transplant status; I13.0 Hypertensive heart and chronic kidney disease with heart failure and stage 1 through stage 4 chronic kidney disease, or unspecified chronic kidney disease; E87.20 Acidosis, unspecified; N18.4 Chronic kidney disease, stage 4 (severe); B96.4 Proteus (mirabilis) (morganii) as the cause of diseases classified elsewhere; I65.23 Occlusion and stenosis of bilateral carotid arteries; Z79.899 Other long term (current) drug therapy; E86.0 Dehydration; D63.1 Anemia in chronic kidney disease; W18.30XA Fall on same level, unspecified, initial encounter; I69.920 Aphasia following unspecified cerebrovascular disease; F03.90 Unspecified dementia, unspecified severity, without behavioral disturbance, psychotic disturbance, mood disturbance, and anxiety; I50.9 Heart failure, unspecified; R53.81 Other malaise
CPT/HCPCS: 36415; 36416; 70450; 71045; 72125; 72170; 76770; 80048; 80053; 80197; 81001; 82570; 83880; 84156; 84484; 85025; 87077; 87086; 87186; 93005; 93306; 93880; 94760; J1940; J7050; J7507; J7512; J7517; Q0162

== ENCOUNTER 2023-11-24 02:49 | Inpatient (IN) | payer MEDICARE, BC ==
[2023-11-24 04:02] LABS: #Monocytes 0.6 thou/uL (0.11-0.59); #Neutrophils 8.4 thou/uL (1.40-6.50); %Basophils 0.2 % (0.0-1.0); %Eosinophils 0.3 % (0.0-10.0); %Lymphocytes 13.2 % (21.0-51.0); %Monocytes 5.8 % (0.0-10.0); %Neutrophils 78.5 % (42.0-75.0); Hematocrit 34.8 % (36.0-47.0); Hemoglobin 10.4 g/dL (12.0-16.0); Mean Corpuscular HGB CONC 29.9 g/dL (32.0-36.0); Mean Corpuscular Hemoglobin 25.8 pg (27.0-31.0); Mean Corpuscular Volume 86.4 fl (78.0-98.0); Mean Platelet Volume 9.6 fL (7.4-10.4); Platelet Count 261 10x3/uL (130-400); RBC Distribution Width 18.8 % (11.5-14.5); Red Blood Cell (RBC) Count 4.03 mill/uL (4.20-5.40); White Blood Cell (WBC) Count 10.7 10x3/uL (4.8-10.8)
[2023-11-24] MEDS ORDERED: Ondansetron PF 4 MG/2 ML Vial ONE (04:08)
[2023-11-24 05:08] LABS: ALT (SGPT) 7 U/L (8-55); AST (SGOT) 7 U/L (5-34); Albumin 3.7 g/dL (3.4-4.8); Alkaline Phosphatase 80 U/L (40-110); Anion Gap 17 mmol/L (10-20); BUN (Urea Nitrogen) 67 mg/dL (9.8-20.1); Bilirubin, Total 0.5 mg/dL (0.2-1.2); Calc. Creatinine Clearance 0 mL/min (70-130); Calcium 9.8 mg/dL (7.8-10.44); Carbon Dioxide 22 mmol/L (23-31); Chloride 100 mmol/L (98-107); Estimated GFR 12; Globulin 4.6 g/dL (2.4-3.5); Glucose 94 mg/dL (83-110); Lipase 43 U/L (8-78); Protein, Total 8.3 g/dL (5.8-8.1); Sodium 135 mmol/L (136-145)
[2023-11-24 06:05] LABS: Troponin I Less than 0.010 ng/mL (< 0.028)
[2023-11-24] MEDS ORDERED: Ondansetron ODT 4 MG TAB PO PRN (06:37)
[2023-11-24] MEDS ORDERED: Ondansetron PF 4 MG/2 ML Vial IVP PRN (06:37)
[2023-11-24 08:46] LABS: Bacteria/HPF 2+ HPF (None Seen); Bilirubin Negative (Negative); Blood, Urine Negative (Negative); CAUTI Indications for Culture Pelvic or flank pain; Clarity Clear (Clear); Glucose, Urine (Dipstick) Normal (Negative); Ketone, Urine Negative (Negative); Leukocyte 250 Leu/uL (Negative); Nitrite Negative (Negative); Protein, Urine (Dipstick) Negative (Neg-Trace); RBC/HPF 0-3 HPF (0-3); Specific Gravity, Urine 1.009 (1.002-1.036); Squamous Epithelial 0-3 HPF (0-3); Urobilinogen Normal mg/dL (Less than 2); WBC/HPF 21-50 HPF (0-3); pH, Urine 6.5 (5.0-9.0)
[2023-11-24 08:48] LABS: Urine Culture Reflex Yes Yes
[2023-11-24] MEDS: Sodium Chloride 0.9% 1,000 ML IV SCH (10:23)
[2023-11-24 12:09] LABS: Troponin I Less than 0.010 ng/mL (< 0.028)
[2023-11-24 17:06] VITALS: BMI 23.1
[2023-11-24] MEDS: Mycophenolate 250 MG CAP PO SCH (20:51)
[2023-11-25 04:39] LABS: #Eosinphils 0.1 thou/uL (0.0-0.7); #Monocytes 0.3 thou/uL (0.11-0.59); #Neutrophils 2.7 thou/uL (1.40-6.50); %Basophils 0.2 % (0.0-1.0); %Eosinophils 1.6 % (0.0-10.0); %Lymphocytes 35.9 % (21.0-51.0); %Monocytes 6.5 % (0.0-10.0); %Neutrophils 53.3 % (42.0-75.0); Hematocrit 31.7 % (36.0-47.0); Hemoglobin 9.2 g/dL (12.0-16.0); Mean Corpuscular Hemoglobin 25.6 pg (27.0-31.0); Mean Corpuscular Volume 88.1 fl (78.0-98.0); Mean Platelet Volume 9.3 fL (7.4-10.4); Platelet Count 208 10x3/uL (130-400); RBC Distribution Width 18.9 % (11.5-14.5); White Blood Cell (WBC) Count 5.1 10x3/uL (4.8-10.8)
[2023-11-25 04:54] LABS: Anion Gap 14 mmol/L (10-20); BUN (Urea Nitrogen) 42 mg/dL (9.8-20.1); Calc. Creatinine Clearance 24 mL/min (70-130); Calcium 8.7 mg/dL (7.8-10.44); Carbon Dioxide 20 mmol/L (23-31); Chloride 112 mmol/L (98-107); Estimated GFR 23; Glucose 86 mg/dL (83-110); Potassium 4.2 mmol/L (3.5-5.1); Sodium 142 mmol/L (136-145)
[2023-11-25] MEDS: Enoxaparin 30 MG (0.3 mL) SYRINGE SC SCH (08:23)
[2023-11-25] MEDS: Tacrolimus 0.5 MG CAP PO SCH (08:24)
[2023-11-25] MEDS: predniSONE 5 MG TAB PO SCH (08:24)
[2023-11-25] MEDS: Acetaminophen 325 MG TAB PO PRN (08:25)
[2023-11-25] MEDS: Carvedilol 25 MG TAB PO SCH (14:28)
[2023-11-25 15:27] VITALS: BP 158/91; TEMP 99.3
[2023-11-25 17:03] LABS: Campy jejuni + coli by PCR Negative (Negative); STEC Shiga Toxin 1+2 Negative (Negative); Salmonella spp. by PCR Negative (Negative); Shigella spp + EIEC by PCR Negative (Negative)
[2023-11-25] MEDS ORDERED: Carvedilol 25 MG TAB PO SCH (21:00)
[2023-11-26] MEDS ORDERED: dilTIAZem CD 180 MG CAP PO SCH (09:00)
[2023-11-26] MEDS ORDERED: Tacrolimus 0.5 MG CAP PO SCH (21:00)
== END 2023-11-25 17:32 | disposition home or self-care (01) | DRG 683 ==
LOC: ERS 02:49 → ERHOLD 06:30 → 2SW 16:55
PROVIDERS: ADMIT Student in an Organized Health Care Education/Training Program; ATTEND Hospitalist
DX: N17.9 Acute kidney failure, unspecified (principal); I13.0 Hypertensive heart and chronic kidney disease with heart failure and stage 1 through stage 4 chronic kidney disease, or unspecified chronic kidney disease; Z94.1 Heart transplant status; Z88.2 Allergy status to sulfonamides; Z88.8 Allergy status to other drugs, medicaments and biological substances; E78.5 Hyperlipidemia, unspecified; R19.7 Diarrhea, unspecified; I50.9 Heart failure, unspecified; N18.9 Chronic kidney disease, unspecified; A08.4 Viral intestinal infection, unspecified; I25.10 Atherosclerotic heart disease of native coronary artery without angina pectoris
CPT/HCPCS: 36415; 71045; 80048; 80053; 81001; 83630; 83690; 83880; 84484; 85025; 87077; 87086; 87186; 87324; 87328; 87329; 87449; 87505; 93005; 96361; 96374; J1650; J2405; J7050; J7507; J7512; J7517